=== PATIENT | male | born 2005 | race Two or more races ===

== ENCOUNTER 2024-07-11 03:39 | Emergency (ER) | payer SELFPAY ==
[2024-07-11 03:41] VITALS: BP 121/84; PULSE 85; RESP 19; TEMP 36.9; O2SAT 97
[2024-07-11 03:42] VITALS: BMI 24.0
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
== END 2024-07-11 04:02 ==
LOC: SERX 04:10
PROVIDERS: Emergency Provider Emergency Medicine
DX: Z02.89 Encounter for other administrative examinations (principal); Z04.1 Encounter for examination and observation following transport accident
CPT/HCPCS: 99281